=== PATIENT | male | born 1965 | race Caucasian/White ===

== ENCOUNTER 2016-09-29 07:50 | Day surgery (SDC) | payer OTHER ==
[2016-09-29] VITALS (9 sets, daily range): BP systolic 92–122; BP diastolic 55–88; PULSE 45–59; RESP 13–17; O2SAT 93–97
[~2016-09-29] VITALS: Ht 185.4 cm; Wt 108.3 kg
[~2016-09-29 07:50] MED LIST: CeFAZolin Inj 2 GM in IV Premix 1 EACH IV SCH
[2016-09-29] MEDS ORDERED: Phenylephrine/NS-PF 100 mCg/mL 5 mL Syringe IVPUSH ONE (07:51)
[2016-09-29] MEDS ORDERED: Ondansetron 2 mg/mL 2 mL Inj ONE (07:51)
[2016-09-29] MEDS ORDERED: Remifentanil 1 mg/3 mL Inj ONE (07:51)
[2016-09-29] MEDS ORDERED: Propofol 10,000 mCg/mL 20 mL Inj ONE (07:51)
[2016-09-29] MEDS ORDERED: fentaNYL-PF 50 mCg/mL 2 mL Inj ONE (07:51)
[2016-09-29] MEDS: Lactated Ringer's 1,000 ML IV SCH ×2 (08:08→09:55)
--- NOTE | 2016-09-29 08:24 | PCM.HPANE ---
Patient Data Surgeon Admitting Provider: Attending Provider:Reji Dowling MD Primary Care Physician:Amando Paris MD Other Provider:Chen Rodriguezingham Anesthesia Reason for Visit Umbilical Hernia Ht/WT & BMI Height (Feet): 6 Height (Inches): 1 Weight (Kilograms): 108.3 Body Mass Index 30.00 Allergies Coded Allergies: No Known Allergies (Unverified Allergy, Unknown, 11/05/13) Past Anesthesia History Anesthesia History: Denies:: Abnormal Airway, Anesthesia Reactions, Difficult Intubation, Fam Anesthesia Reaction, Fam Malignant Hypertherm, Malignant Hyperthermia Diabetes History Hx Diabetes?: No MRSA MRSA: Yes (history of 2006, 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) Medications Home Meds Incl Beta Renetta: No Discontinued Reported Medications Bupropion ER (Wellbutrin SR)150 Mg Tablet.er150 Mg PO BID Ref 0 09/28/[address] (Protonix)20 Mg Vubnbn60 Mg PO DAILY 30 Days Ref 0 04/04/14 History History of ENT Problems?: No HEENT History: Denies:: Abnormal Airway Difficult Intubation Dysphagia Hearing Problem Denture Type: None Teeth Condition: Within Normal Limits Hx of Heart Problems?: No Cardiovascular History: Denies:: AICD Atrial Fibrillation Chest Pain Hypertension Pacemaker Valvular Heart Disease Hx of Respiratory Problem?: No Respiratory History: Denies:: Asthma COPD Cough Hemoptysis Pneumonia Tuberculosis Hx Neurologic Problems?: No Neurological History: Denies:: CVA Dementia Hx of GI Problems?: Yes Hx of Problems?: No Genitourinary History: Denies:: HX of Hemodialysis Kidney Stones Urinary Tract Infection Skin History: Denies:: History Skin Disorders? Pressure Ulcers Hx Musculoskeletal Problems?: Yes Musculoskeletal History: Positive for:: Back Injury (LOW BACK PAIN) Denies:: Joint Replacement Hx of Psycho/Social Problems?: Yes Psycho Social History: Positive for:: Hx Depression (NO LONGER ON MEDS) Denies:: Anxiety Hx Surgeries?: Yes (nail removed from femur, inguinal hernia X2) Hx Any Other Health Problems?: No Other History: Denies:: Cancer Endocrine Disease Thyroid Disease History Blood Transfusions: Positive for:: Accept Blood Products? Denies:: Blood Transfusions Hx Diabetes: No Other Pertinent History: Hx Alcohol Use: NoHx Substance Use: No Smoking Status: Current Every Day Smoker Have You Smoked inLast 12 mo: YesApprox How Many Cigarettes/day: 1 PACK Stop/Bang S-Snoring: Do You Snore Loudly: Yes T-Tired: feel tired, fatigued: No O-Obsered: Observed not breath: No P-Blood Pressure: treated: No B- Body Mass Index > 35 kg/m2: No A- Age over 50: Yes N- Neck Large Circumference: No G- Gender Male: Yes DEBBIE Total Score: 3 Risk Assessment Category Category 1A: Patient has history of documented sleep apnea, and HAS NOT received any narcotic, sedative or anesthesia administration during this stay. Category 1B: Patient has history of documented sleep apnea, and HAS received any narcotic , sedative or anesthesia administration during this stay Category 2: Patient has SUSPECTED Obstructive Sleep Apnea, and HAS received any narcotic , sedative or anesthesia administration during this stay. Category 3: Patient has SUSPECTED Obstructive Sleep Apnea and HAS NOT received narcotic, sedative or anesthesia administration during this stay. Category 4: Outpatient in Procedural Areas with known sleep apnea or who screen positive for High Risk via the STOP/BANG questionnaire. Exam Exam General Appearance: Alert HEENT/AIRWAY: MP 1, Neck Movement (ro), Mouth Opening (wnl) Lungs: Clear to Auscultation Heart: Exam Unremarkable Meds/Labs/Diagnostics Admission Meds Current Medications Lactated Ringer's (Lr) 1,000 ml @ 120 mls/hr Q8H20M IV Last administered on t 08:08; Start 09/29/16 at 05:00; Stop 09/29/16 at 13:19 Plan Impression Patient chart reviewed, patient interviewed and anesthestic plan with risks, benefits, and alternatives discussed, and informed consent obtained. ASA Physical Status: ASA2 Mod Systemic Disease Anesthetic Plan: GA Bene/Risks/Altern/Consents: Yes HP Complete Prior to Induction: Yes Bill Dillard MD Sep 29, 2016 08:24
[2016-09-29] MEDS ORDERED: Lactated Ringer's 1,000 ML IV SCH (09:12)
[2016-09-29] MEDS ORDERED: Lactated Ringer's 500 ML IV PRN (09:12)
[2016-09-29] MEDS ORDERED: Ondansetron 2 mg/mL 2 mL Inj IVPUSH PRN (09:15)
[2016-09-29] MEDS ORDERED: Atropine 0.4 mg/mL Inj IVPUSH PRN (09:15)
[2016-09-29] MEDS ORDERED: Labetalol 5 mg/mL 4 mL Inj IV PRN (09:15)
[2016-09-29] MEDS ORDERED: Phenylephrine 10,000 mCg/mL Inj IVPUSH PRN (09:15)
[2016-09-29] MEDS ORDERED: HYDROmorphone 1 mg/mL Inj IVPUSH PRN (09:15)
[2016-09-29] MEDS ORDERED: EPHEDrine Sulfate 50 mg/mL Inj IVPUSH PRN (09:15)
[2016-09-29] MEDS ORDERED: fentaNYL-PF 50 mCg/mL 2 mL Inj IVPUSH PRN (09:15)
[2016-09-29] MEDS ORDERED: Dexamethasone 4 mg/mL Inj IVPUSH PRN (09:15)
[2016-09-29] MEDS ORDERED: hydrALAZINE 20 mg/mL Inj IVPUSH PRN (09:15)
[2016-09-29] MEDS ORDERED: Bupivacaine-MPF 0.25% 30 mL Inj INFILTRATE ONE (09:55)
[2016-09-29] MEDS ORDERED: oxyCODONE-Acetamin 5-325 mg Tablet PO PRN (10:25)
--- NOTE | 2016-09-29 10:45 | OP ---
[address] [address] OPERATIVE REPORT PATIENT: SHAUN HARRIS : 1965 MR#: [id number] ADMIT: 09/29/2016 JOB ID: [id number] DATE OF SURGERY: 09/29/2016 ANESTHESIA: General. PREOPERATIVE DIAGNOSIS(ES): Symptomatic umbilical hernia. POSTOPERATIVE DIAGNOSIS(ES): Symptomatic umbilical hernia. PROCEDURE: Open repair of umbilical hernia. SURGEON: Dr. Reji Dowling. RIBBON INKER: Rashaun Guillaume PA-C (the blood and plasma laboratory assistant was required for the safe and timely completion of the case). COMPLICATIONS: None. ESTIMATED BLOOD LOSS: Less than 5 mL. CONDITION: Satisfactory. SPECIMEN: None. FINDINGS: There was a left than 1 cm fascial defect which was repaired primarily with 2-0 Prolene suture. INDICATION/SIGNIFICANT HISTORY: The patient is a 51-year-old man who noticed a small lump in his belly button after lifting heavy sheets of plywood. It was relatively asymptomatic. He was referred to ma and desired to have it repaired. OPERATIVE TECHNIQUE: The patient was taken to the operating room and placed in the supine position. General anesthesia was administered and perioperative antibiotics were given. The abdomen was prepped and draped in a standard surgical fashion and a procedural pause performed. Local anesthetic was injected and a curvilinear infraumbilical incision was made. Dissection was carried down through skin and subcutaneous tissue. I dissected around the umbilical stalk and then transected this. The umbilical hernia contained fat. This was reduced. The fascia was cleared and then the fascial defect, which measured less than 1 cm, was closed with a single horizontal mattress suture of 2-0 Prolene. The umbilicus was then tacked down to the fascia using 3-0 PDS. 3-0 PDS deep dermal was placed followed by a running 4-0 Monocryl. Pressure dressing was applied. The entire procedure was well tolerated without complication. [facility] CENTERNetta
--- NOTE | 2016-09-29 12:27 | PCM.ANEP1 ---
Post Anesthesia PACU Phase 1 Assessment Vital Signs Vital Signs Date Time Temp Pulse Resp B/P Pulse Ox O2 Delivery O2 Flow Rate FiO2 09/29/16 11:59 59 16 113/77 95 Room Air 09/29/16 11:15 52 16 122/74 95 Room Air 09/29/16 11:05 48 13 99/55 95 Room Air 09/29/16 10:50 49 17 99/66 97 Nasal Cannula 2 09/29/16 10:35 45 15 99/69 95 Nasal Cannula 2 09/29/16 10:30 49 17 94/71 96 Nasal Cannula 2 09/29/16 10:22 36.5 55 15 97/59 95 Nasal Cannula 2 09/29/16 10:20 50 14 92/63 93 Nasal Cannula 2 09/29/16 08:15 36.3 57 16 116/88 94 Room Air Anesthetic Administered: GA Level of Alertness: Awake, talking MERRILL's with Equal Strength: Yes Pain: No Nausea or Vomiting: No CV Function & Hydration Stable: Yes Airway Device: Oxygen Delivery: Room Air Lungs: Normal Air Movement PACU Phase 2 Assessment Complications: No Follow up Care: No Patient Instructions Provided: N/A Bill Dillard MD Sep 29, 2016 12:27
== END 2016-09-29 23:59 | disposition home or self-care (01) ==
LOC: SAS 07:50
PROVIDERS: ATTEND General Practice
DX: K42.9 Umbilical hernia without obstruction or gangrene (principal); M54.5 Low back pain; F32.9 Major depressive disorder, single episode, unspecified; B18.2 Chronic viral hepatitis C; F17.210 Nicotine dependence, cigarettes, uncomplicated
CPT/HCPCS: 49585; J0690; J2370; J2405; J3010; J7120